=== PATIENT | female | born 1990 | race Caucasian/White ===

== ENCOUNTER 2017-10-23 21:14 | Emergency (ER) | payer OTHER, SELFPAY ==
[2017-10-23 22:13] LABS: Urine Bacteria <20 /HPF (<20); Urine Culture Reflex Order REFLEXED; Urine Mucus 1+ /HPF (NONE SEEN)
[2017-10-23 22:14] LABS: Urine Blood 2+ (NEG); Urine Glucose NEGATIVE (NEG); Urine Protein 2+ (NEG); Urine Specific Gravity 1.025 (1.005-1.030); Urine pH 6.5 (5.0-7.0)
--- NOTE | 2017-10-23 22:25 | EDPHYS ---
Physician Documentation [facility] Name: Ebony Cardoza Age: 27 yrs Sex: Female : 1990 Arrival Date: 10/23/2017 Time: 21:15 Bed 5 Private MD: ED Physician Vincent Etienne HPI: 10/23 21:48 This 27 yrs old Female presents to ER via Ambulatory with complaints of cp Urinary Retention. 21:48 The patient presents with urinary symptoms, dysuria, frequency, urgency. cp 21:48 Onset: The symptoms/episode began/occurred this morning. Associated signs and symptoms: cp Pertinent positives: dysuria, hematuria, urinary frequency, Pertinent negatives: constipation, diarrhea, fever, vaginal bleeding, vaginal discharge. Severity of symptoms: in the emergency department the symptoms are unchanged, despite home interventions. 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 - Social history:: Smoking status: Patient/guardian denies using tobacco. - Ebola Screening: : Patient denies travel to an Ebola-affected area in the 21 days before illness onset. ROS: 21:55 Constitutional: Negative for body aches, chills, fever, poor PO intake. cp 21:55 Eyes: Negative for injury, pain, redness, and discharge. cp 21:55 ENT: Negative for drainage from ear(s), ear pain, sore throat, difficulty swallowing, difficulty handling secretions. 21:55 Cardiovascular: Negative for chest pain. 21:55 Respiratory: Negative for cough, wheezing. 21:55 Abdomen/GI: Negative for abdominal pain, nausea, vomiting, and diarrhea. 21:55 Back: Negative for pain at rest, pain with movement, radiated pain. 21:55 : Positive for urinary frequency, hematuria, burning with urination. 21:55 Skin: Negative for cellulitis, rash. 21:55 All other systems are negative. Exam: 22:00 Constitutional: The patient appears in no acute distress, alert, awake, non-toxic, well cp developed, well nourished. 22:00 Head/Face: Normocephalic, atraumatic. cp 22:00 Eyes: Periorbital structures: appear normal, Conjunctiva: normal, no exudate, no injection, Sclera: no appreciated abnormality, Lids and lashes: appear normal, bilaterally. 22:00 ENT: External ear(s): are unremarkable, Nose: is normal, Mouth: is normal, Posterior pharynx: is normal, airway is patent. 22:00 Neck: ROM/movement: is normal, is supple, without pain, no range of motions limitations, no nuchal rigidity. 22:00 Chest/axilla: Inspection: normal. 22:00 Cardiovascular: Rate: tachycardic, Rhythm: regular. 22:00 Respiratory: the patient does not display signs of respiratory distress, Respirations: normal, no use of accessory muscles, no retractions, no splinting, no tachypnea. 22:00 Abdomen/GI: Inspection: abdomen appears normal, Bowel sounds: active, all quadrants, Palpation: abdomen is soft and non-tender, in all quadrants, rebound tenderness, is not appreciated, voluntary guarding, is not appreciated, involuntary guarding, is not appreciated. 22:00 Back: CVA tenderness, is absent. 22:00 Skin: cellulitis, is not appreciated, no rash present. Vital Signs: 21:30 BP 147 / 100; Pulse 101; Resp 18; Temp 98.0; Pulse Ox 96% on R/A; Weight 74.84 kg (R); aj1 Height 5 ft. 0 in. (152.40 cm); Pain 0/10; 22:24 BP 127 / 85; Pulse 86; Resp 17; Pulse Ox 100% on R/A; rv 21:30 Body Mass Index 32.22 (74.84 kg, 152.40 cm) aj1 MDM: 21:37 Patient medically screened. cp 22:00 Differential diagnosis: kidney stone, menorrhea, pelvic inflammatory disease, urinary cp tract infection, vaginosis. 22:24 Data reviewed: vital signs, nurses notes, lab test result(s), and as a result, I will cp discharge patient. 22:25 Counseling: I had a detailed discussion with the patient and/or guardian regarding: the cp historical points, exam findings, and any diagnostic results supporting the discharge/admit diagnosis, lab results, the need for outpatient follow up, a family practitioner, to return to the emergency department if symptoms worsen or persist or if there are any questions or concerns that arise at home. 10/23 21:35 Order name: Urine Microscopic Only; Complete Time: 22:24 cp 10/23 22:24 Interpretation: Within normal limits: UWBC 5-10; URBC 10-20. cp 10/23 21:51 Order name: Urine Dipstick--Ancillary (enter results); Complete Time: 22:24 eb 10/23 22:24 Interpretation: Normal except: UBLD 2+; UPROT 2+; UESTR 1+. cp 10/23 21:35 Order name: Urine Dipstick-Ancillary (obtain specimen); Complete Time: 21:48 cp 10/23 21:35 Order name: Urine Test (obtain specimen); Complete Time: 21:48 10/23 21:51 Order name: Urine --Ancillary (enter results); Complete Time: 22:24 eb 10/23 22:14 Order name: Urine Culture EDMS Administered Medications: No medications were administered Disposition: 10/24 03:44 Co-signature as Attending Physician, Vincent Etienne MD. Disposition: 10/23/17 22:25 Discharged to Home. Impression: Dysuria. - Condition is Stable. - Discharge Instructions: Dysuria. - Prescriptions for Pyridium 200 mg Oral Tablet - take 1 tablet by ORAL route every 8 hours for 2 days; 6 tablet. Macrobid 100 mg Oral Capsule - take 1 capsule by ORAL route every 12 hours for 7 days; 14 capsule. - Medication Reconciliation Form, Thank You Letter, Antibiotic Education, Prescription Opioid Use, Work release form form. - Follow up: Private Physician; When: 2 - 3 days; Reason: Recheck today's complaints. - Problem is new. - Symptoms are unchanged. Signatures: Dispatcher [facility] EDMS Mary Jo Gillette RN RN aj1 Luisito Olmstead PA PA cp Starr, Gregory, MD MD Farhan Link RN RN rv Corrections: (The following items were deleted from the chart) 10/23 22:32 22:25 10/23/2017 22:25 Discharged to Home. Impression: Dysuria. Condition is Stable. rv Forms are Medication Reconciliation Form, Thank You Letter, Antibiotic Education, Prescription Opioid Use. Follow up: Private Physician; When: 2 - 3 days; Reason: Recheck today's complaints. Problem is new. Symptoms are unchanged. cp
--- NOTE | 2017-10-23 22:25 | ER ---
Nurse's Notes [facility] Name: Ebony Cardoza Age: 27 yrs Sex: Female : 1990 Arrival Date: 10/23/2017 Time: 21:15 Bed 5 Private MD: Diagnosis: Dysuria Presentation: 10/23 21:28 Presenting complaint: Patient states: "Every time I try to go pee it hurts." Reports aj1 dysuria, urinary frequency since 11:00 this morning. Denies fever, denies N/V/D. Transition of care: patient was not received from another setting of care. Onset of symptoms was October 23, 2017 at 11:00. Risk Assessment: Do you want to hurt yourself or someone else? Patient reports no desire to harm self or others. Initial Sepsis Screen: Does the patient meet any 2 criteria? No. Patient's initial sepsis screen is negative. Does the patient have a suspected source of infection? No. Patient's initial sepsis screen is negative. Care prior to arrival: None. 21:28 Method Of Arrival: Ambulatory aj1 21:28 Acuity: TOO 4 aj1 Triage Assessment: 21:30 General: Appears in no apparent distress. comfortable, Behavior is calm, cooperative, aj1 appropriate for age. Pain: Denies pain. EENT: No signs and/or symptoms were reported regarding the EENT system. Neuro: Level of Consciousness is awake, alert, obeys commands, Oriented to person, place, time, situation, Speech is normal, Facial symmetry appears normal. Cardiovascular: Patient's skin is warm and dry. Respiratory: Airway is patent Respiratory effort is even, unlabored, Respiratory pattern is regular, symmetrical. GI: No signs and/or symptoms were reported involving the gastrointestinal system. : Reports burning with urination, urinary frequency. Derm: Skin is pink, warm \\T\\ dry. normal. Musculoskeletal: Circulation, motion, and sensation intact. 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 - Social history:: Smoking status: Patient/guardian denies using tobacco. - Ebola Screening: : Patient denies travel to an Ebola-affected area in the 21 days before illness onset. Screenin:50 Abuse screen: Denies threats or abuse. Denies injuries from another. Nutritional rv screening: No deficits noted. Tuberculosis screening: No symptoms or risk factors identified. Fall Risk None identified. Assessment: 21:48 General: Appears in no apparent distress. comfortable, Behavior is calm, cooperative. rv Pain: Complains of pain in pain on urination. Neuro: Level of Consciousness is awake, alert, obeys commands, Oriented to person, place, time, situation. Cardiovascular: Capillary refill < 3 seconds. Respiratory: Airway is patent. GI: No signs and/or symptoms were reported involving the gastrointestinal system. : No signs and/or symptoms were reported regarding the genitourinary system. EENT: No signs and/or symptoms were reported regarding the EENT system. Derm: Skin is intact. 22:25 Reassessment: Patient appears in no apparent distress at this time. Patient and/or rv family updated on plan of care and expected duration. Pain level reassessed. Patient is alert, oriented x 3, equal unlabored respirations, skin warm/dry/pink. PATIENT IS SITTING ON BED, COMFORTABLE. VITAL SIGNS ARE STABLE. Vital Signs: 21:30 BP 147 / 100; Pulse 101; Resp 18; Temp 98.0; Pulse Ox 96% on R/A; Weight 74.84 kg (R); aj1 Height 5 ft. 0 in. (152.40 cm); Pain 0/10; 22:24 BP 127 / 85; Pulse 86; Resp 17; Pulse Ox 100% on R/A; rv 21:30 Body Mass Index 32.22 (74.84 kg, 152.40 cm) aj1 ED Course: 21:15 Patient arrived in ED. ds1 21:30 Triage completed. aj1 21:33 Arm band placed on Patient placed in an exam room. aj1 21:34 Luisito Olmstead PA is PHCP. cp 21:34 Vincent Etienne MD is Attending Physician. cp 21:50 Patient has correct armband on for positive identification. Bed in low position. Call rv light in reach. Side rails up X 1. Pulse ox on. NIBP on. 22:32 No provider procedures requiring assistance completed. Patient did not have IV access rv during this emergency room visit. Administered Medications: No medications were administered Outcome: 22:25 Discharge ordered by . cp 22:32 Discharged to home ambulatory. rv 22:32 Condition: good 22:32 Discharge instructions given to patient, Instructed on discharge instructions, medication usage. 22:32 Patient left the ED. rv Addendum: 10/28/2017 08:30 Addendum: Culture Results: Positive urine culture. No further action required. Bacteria s g sensitive to prescribed antibiotic. Signatures: Mary Jo Gillette RN RN aj1 Drew Matthews RN RN sg Haritha Gordillo ds1 Luisito Olmstead PA PA cp Vicente, Ronaldo, RN RN rv
== END 2017-10-23 22:32 | disposition home or self-care (01) ==
LOC: ER 21:14
DX: R30.0 Dysuria (principal)
CPT/HCPCS: 81003; 81015; 81025; 87077; 87086; 87088; 87186; 99283

== ENCOUNTER 2018-01-14 05:06 | Emergency (ER) | payer OTHER ==
[2018-01-14] MEDS ORDERED: DIPHENHYDRAMINE 25 MG TAB/CAP ONE (05:40)
[2018-01-14] MEDS ORDERED: FAMOTIDINE 20 MG TAB ONE (05:48)
[2018-01-14] MEDS ORDERED: METHYLPREDNISOLONE 125 MG INJ ONE (05:48)
--- NOTE | 2018-01-14 05:48 | EDPHYS ---
Physician Documentation [facility] Name: Ebony Cardoza Age: 27 yrs Sex: Female : 1990 Arrival Date: 01/14/2018 Time: 05:08 Bed 17 Private MD: Graciela Hanna ED Physician Sinai Lanza HPI: 01/14 05:44 This 27 yrs old Female presents to ER via Ambulatory with complaints of Rash. ma2 05:44 The patient's rash thought to be caused by allergies. Onset: The symptoms/episode ma2 began/occurred gradually, 2 day(s) ago. Associated signs and symptoms: Pertinent positives: itching, Pertinent negatives: burning sensation, Pain swelling of tongue, vomiting. Severity of symptoms: At their worst the symptoms were moderate. The patient has experienced a previous episode. 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 - Social history:: Smoking status: Patient uses tobacco products, denies chronic smoking, but will smoke occasionally, Patient/guardian denies using alcohol, street drugs, The patient lives with family. - Ebola Screening: : No symptoms or risks identified at this time. - Family history:: not pertinent. ROS: 05:44 Constitutional: Negative for fever, chills, and weight loss, Cardiovascular: Negative ma2 for chest pain, palpitations, and edema, Abdomen/GI: Negative for abdominal pain, nausea, diarrhea, and constipation. 05:44 Skin: Positive for rash, Negative for abrasions, cellulitis, discoloration, erythema. 05:44 All other systems are negative. Exam: 05:44 Constitutional: This is a well developed, well nourished patient who is awake, alert, ma2 and in no acute distress. ENT: Nares patent. No nasal discharge, no septal abnormalities noted. Tympanic membranes are normal and external auditory canals are clear. Oropharynx with no redness, swelling, or masses, exudates, or evidence of obstruction, uvula midline. Mucous membranes moist. Chest/axilla: Normal chest wall appearance and motion. Nontender with no deformity. No lesions are appreciated. 05:44 Skin: hives on arms and chest . Vital Signs: 05:23 BP 137 / 97; Pulse 87; Resp 16; Temp 97.6; Pulse Ox 99% on R/A; Weight 76.2 kg; Height aa1 5 ft. 0 in. (152.40 cm); Pain 0/10; 05:30 BP 113 / 85; Pulse 75; Resp 17 S; Pulse Ox 98% on R/A; jd3 06:11 BP 121 / 97; Pulse 84; Resp 16 S; Pulse Ox 98% on R/A; jd3 05:23 Body Mass Index 32.81 (76.20 kg, 152.40 cm) aa1 MDM: 05:16 Patient medically screened. ma2 05:44 Differential diagnosis: varicella, allergic reaction, parasite infection, carcinoma. ma2 Data reviewed: vital signs, nurses notes. Counseling: I had a detailed discussion with the patient and/or guardian regarding: the historical points, exam findings, and any diagnostic results supporting the discharge/admit diagnosis, the presence of at least one elevated blood pressure reading (>120/80) during this emergency department visit, the need for outpatient follow up. Response to treatment: the patient's symptoms have markedly improved after treatment. Administered Medications: 05:37 Drug: Benadryl 50 mg Route: PO; jd3 06:12 Follow up: Response: No adverse reaction jd3 05:46 Drug: MethylPREDNISolone Sodium Succinate 125 mg Route: IM; Site: right gluteus; ea 06:12 Follow up: Response: No adverse reaction jd3 05:46 Drug: Pepcid 20 mg Route: PO; ea 06:12 Follow up: Response: No adverse reaction jd3 Disposition: 01/14/18 05:47 Discharged to Home. Impression: Rash and other nonspecific skin eruption. - Condition is Stable. - Discharge Instructions: Allergies, [id number]. - Prescriptions for Benadryl 25 mg Oral Capsule - take 1 capsule by ORAL route every 6 hours As needed; 30 tablet. Medrol (Tyler) 4 mg Oral Tablets, Dose Pack - take 1 tablet by ORAL route as directed - follow package instructions; 1 packet. Pepcid 20 mg Oral Tablet - take 1 tablet by ORAL route once daily for 10 days; 10 tablet. - Work release form, Medication Reconciliation Form, Thank You Letter, Antibiotic Education, Prescription Opioid Use form. - Follow up: Private Physician; When: Tomorrow; Reason: Continuance of care. - Problem is new. - Symptoms have improved. Signatures: Swati Nixon RN RN aa1 Estella Mckeon RN RN ea Álvaro Matute RN RN jd3 Sinai Lanza MD MD ma2 Corrections: (The following items were deleted from the chart) 06:13 05:47 01/14/2018 05:47 Discharged to Home. Impression: Rash and other nonspecific skin jd3 eruption. Condition is Stable. Forms are Medication Reconciliation Form, Thank You Letter, Antibiotic Education, Prescription Opioid Use. Follow up: Private Physician; When: Tomorrow; Reason: Continuance of care. Problem is new. Symptoms have improved. ma2
--- NOTE | 2018-01-14 05:48 | ER ---
Nurse's Notes [facility] Name: Ebony Cardoza Age: 27 yrs Sex: Female : 1990 Arrival Date: 01/14/2018 Time: 05:08 Bed 17 Private MD: Graciela Hanna Diagnosis: Rash and other nonspecific skin eruption Presentation: 01/14 05:16 Presenting complaint: Patient states: rash to trunk and BUE since yesterday. C/O aa1 itching. Transition of care: patient was not received from another setting of care. Onset of symptoms was January 14, 2018. Risk Assessment: Do you want to hurt yourself or someone else? Patient reports no desire to harm self or others. Initial Sepsis Screen: Does the patient meet any 2 criteria? No. Patient's initial sepsis screen is negative. Does the patient have a suspected source of infection? No. Patient's initial sepsis screen is negative. Care prior to arrival: None. 05:16 Method Of Arrival: Ambulatory aa1 05:16 Acuity: TOO 4 aa1 Triage Assessment: 05:23 General: Appears in no apparent distress. Behavior is calm, cooperative, appropriate aa1 for age. 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 - Social history:: Smoking status: Patient uses tobacco products, denies chronic smoking, but will smoke occasionally, Patient/guardian denies using alcohol, street drugs, The patient lives with family. - Ebola Screening: : No symptoms or risks identified at this time. - Family history:: not pertinent. Screenin:18 Fall Risk Ambulatory Aid- None/Bed Rest/Nurse Assist (0 pts). Gait- Normal/Bed jd3 Rest/Wheelchair (0 pts) Mental Status- Oriented to own ability (0 pts). Total Morales Fall Scale indicates No Risk (0-24 pts). 05:18 Abuse screen: Denies threats or abuse. Nutritional screening: No deficits noted. jd3 Tuberculosis screening: No symptoms or risk factors identified. Assessment: 05:16 General: Appears in no apparent distress. uncomfortable, Behavior is calm, cooperative, jd3 appropriate for age. Pain: Denies pain. Neuro: Level of Consciousness is awake, alert, obeys commands, Oriented to person, place, time, situation. Cardiovascular: Capillary refill < 3 seconds Patient's skin is warm and dry. Respiratory: Airway is patent Respiratory effort is even, unlabored, Respiratory pattern is regular, symmetrical, Breath sounds are clear bilaterally. GI: No signs and/or symptoms were reported involving the gastrointestinal system. : No signs and/or symptoms were reported regarding the genitourinary system. EENT: No signs and/or symptoms were reported regarding the EENT system. Derm: Skin is intact, Skin is dry, Skin is normal, Skin temperature is warm Rash noted that is itchy, red, on back, abdomen, right hand and left hand. Musculoskeletal: Circulation, motion, and sensation intact. Range of motion: intact in all extremities. 06:10 Reassessment: Patient appears in no apparent distress at this time. Patient and/or jd3 family updated on plan of care and expected duration. Pain level reassessed. Patient is alert, oriented x 3, equal unlabored respirations, skin warm/dry/pink. Patient states feeling better. Vital Signs: 05:23 BP 137 / 97; Pulse 87; Resp 16; Temp 97.6; Pulse Ox 99% on R/A; Weight 76.2 kg; Height aa1 5 ft. 0 in. (152.40 cm); Pain 0/10; 05:30 BP 113 / 85; Pulse 75; Resp 17 S; Pulse Ox 98% on R/A; jd3 06:11 BP 121 / 97; Pulse 84; Resp 16 S; Pulse Ox 98% on R/A; jd3 05:23 Body Mass Index 32.81 (76.20 kg, 152.40 cm) aa1 ED Course: 05:08 Patient arrived in ED. am2 05:16 Sinai Lanza MD is Attending Physician. ma2 05:16 Álvaro Matute RN is Primary Nurse. jd3 05:18 Patient has correct armband on for positive identification. Bed in low position. Call jd3 light in reach. Side rails up X 1. 05:21 Triage completed. aa1 05:23 Arm band placed on right wrist. aa1 05:53 Graciela Hanna MD is Private Physician. am2 06:10 No provider procedures requiring assistance completed. Patient did not have IV access jd3 during this emergency room visit. Administered Medications: 05:37 Drug: Benadryl 50 mg Route: PO; jd3 06:12 Follow up: Response: No adverse reaction jd3 05:46 Drug: MethylPREDNISolone Sodium Succinate 125 mg Route: IM; Site: right gluteus; ea 06:12 Follow up: Response: No adverse reaction jd3 05:46 Drug: Pepcid 20 mg Route: PO; ea 06:12 Follow up: Response: No adverse reaction jd3 Outcome: 05:47 Discharge ordered by . ma2 06:10 Discharged to home ambulatory. jd3 06:10 Condition: stable 06:10 Discharge instructions given to patient, Instructed on discharge instructions, follow up and referral plans. medication usage, Demonstrated understanding of instructions, follow-up care, medications, Prescriptions given X 3. 06:13 Patient left the ED. jd3 Signatures: Swati Nixon RN RN aaEbony Gomez amEstella Santana RN RN ea Davies, Jonathon, RN RN jSinai Allen MD MD ri2
== END 2018-01-14 06:13 | disposition home or self-care (01) ==
LOC: ER 05:06
DX: R21 Rash and other nonspecific skin eruption (principal)
CPT/HCPCS: 96372; 99283; J2930

== ENCOUNTER 2018-04-08 22:18 | Emergency (ER) | payer OTHER ==
[2018-04-08] MEDS ORDERED: FLUORESCEIN SODIUM 0.6 MG/WRAP ONE (23:11)
[2018-04-08] MEDS ORDERED: TETRACAINE HCL 0.5% 2ML OPTH ONE (23:11)
[2018-04-08] MEDS ORDERED: TETANUS & DIPHTHERIA TOX,ADULT 0.5 ML VIAL ONE (23:21)
[2018-04-08] MEDS ORDERED: TOBRAMYCIN SULF 0.3% OPTH OINT ONE (23:33)
--- NOTE | 2018-04-08 23:42 | ER ---
Nurse's Notes [facility] Name: Ebony Cardoza Age: 28 yrs Sex: Female : 1990 Arrival Date: 04/08/2018 Time: 22:19 Bed 27 Private MD: Diagnosis: Foreign body in cornea, left eye-removed;Injury of conjunctiva and corneal abrasion without foreign body, left eye Presentation: 04/08 22:25 Presenting complaint: Patient states: she was outside hanging [employer] lights and aa1 something got into her L eye. States, "It feels like something's ion there and there's a black dot on my eye." Denies visual disturbance. Transition of care: patient was not received from another setting of care. Onset of symptoms was April 08, 2018. Risk Assessment: Do you want to hurt yourself or someone else? Patient reports no desire to harm self or others. Initial Sepsis Screen: Does the patient meet any 2 criteria? No. Patient's initial sepsis screen is negative. Does the patient have a suspected source of infection? No. Patient's initial sepsis screen is negative. Care prior to arrival: None. 22:25 Method Of Arrival: Ambulatory aa1 22:25 Acuity: TOO 4 aa1 Triage Assessment: 22:27 General: Appears in no apparent distress. comfortable, Behavior is calm, cooperative, aa1 appropriate for age. 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 - Social history:: Smoking status: Patient/guardian denies using tobacco. - Ebola Screening: : No symptoms or risks identified at this time. Screenin:30 Abuse screen: Denies threats or abuse. Denies injuries from another. Nutritional rr5 screening: No deficits noted. Tuberculosis screening: No symptoms or risk factors identified. Fall Risk None identified. Assessment: 22:30 General: Appears in no apparent distress. uncomfortable, Behavior is calm, cooperative, rr5 appropriate for age. Pain: Complains of pain in left eye Pain does not radiate. Pain currently is 5 out of 10 on a pain scale. Quality of pain is described as aching, Pain began suddenly. Neuro: Level of Consciousness is awake, alert, obeys commands, Oriented to person, place, time. Cardiovascular: Capillary refill < 3 seconds Patient's skin is warm and dry. Respiratory: Airway is patent Respiratory effort is even, unlabored, Respiratory pattern is regular, symmetrical. GI: Abdomen is round. : No signs and/or symptoms were reported regarding the genitourinary system. EENT: Eyes with foreign body noted in outer aspect of conjuctiva of left eye. Derm: No signs and/or symptoms reported regarding the dermatologic system. Musculoskeletal: No signs and/or symptoms reported regarding the musculoskeletal system. Vital Signs: 22:27 BP 121 / 74; Pulse 67; Resp 16; Temp 98.1; Pulse Ox 100% on R/A; Weight 79.38 kg; aa1 Height 5 ft. 0 in. (152.40 cm); Pain 0/10; 23:40 BP 120 / 70; Pulse 65; Resp 17; Pulse Ox 100% ; rr5 22:27 Body Mass Index 34.18 (79.38 kg, 152.40 cm) aa1 ED Course: 22:19 Patient arrived in ED. ds1 22:27 Triage completed. aa1 22:27 Arm band placed on right wrist. aa1 22:44 Chelsi Grande FNP-C is [facility]. snw 22:44 Abraham Lorenzo MD is Attending Physician. snw 22:50 Patient has correct armband on for positive identification. rr5 22:50 Pulse ox on. NIBP on. rr5 22:59 Jeffrey Epps RN is Primary Nurse. rr5 23:30 Assist provider with eye exam of left eye. using fluorescein stain, Performed by Chelsi rr5 Christiane OHARA Patient tolerated well. 23:30 Patient did not have IV access during this emergency room visit. rr5 23:40 Elio Roger MD is Referral Physician. 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 Exp: rr5 05/10/2020. Lot #: [id number]. } Route: IM; Site: right deltoid; 04/09 00:05 Follow up: Response: No adverse reaction rr5 04/08 23:30 Drug: Tetracaine Drops 0.5 % 1 drops Route: Ophthalmic; Site: left eye; rr5 04/09 00:05 Follow up: Response: No adverse reaction rr5 04/08 23:40 Drug: Tobramycin Ointment (0.3 %) 1 inches Route: Ophthalmic; Site: left eye; rr5 04/09 00:04 Follow up: Response: No adverse reaction; Medication administered at discharge. rr5 04/08 23:47 CANCELLED (Other Intervention Used): ERYTHromycin Ointment 1 application Ophthalmic oncerr5 Outcome: 23:41 Discharge ordered by MD. snw 04/09 00:00 Discharged to home ambulatory, with family. rr5 Condition: stable Discharge instructions given to patient, family, Instructed on discharge instructions, follow up and referral plans. medication usage, Demonstrated understanding of instructions, follow-up care, medications, Prescriptions given X 1. 00:05 Patient left the ED. rr5 Signatures: Swati Nixon RN RN aa1 Chelsi Grande FNP-C SURVEY DATA TECHNICIAN-Haritha Haynes ds1 Jeffrey Epps RN RN rr5 Corrections: (The following items were deleted from the chart) 00:04/08 22:00 General: Appears in no apparent distress. uncomfortable, Behavior is calm, rr5 cooperative, appropriate for age, rr5 04/09 00:01 04/08 22:00 Pain: Complains of pain in left eye Pain does not radiate. Pain currently rr5 is 5 out of 10 on a pain scale. Quality of pain is described as aching, Pain began suddenly, rr5 04/09 00:01 04/08 22:00 Neuro: Level of Consciousness is awake, alert, obeys commands, Oriented to rr5 person, place, time, rr5 04/09 00:04/08 22:00 Cardiovascular: Capillary refill < 3 seconds Patient's skin is warm and rr5 dry. rr5 04/09 00:01 04/08 22:00 Respiratory: Airway is patent Respiratory effort is even, unlabored, rr5 Respiratory pattern is regular, symmetrical, rr5 04/09 00:04/08 22:00 GI: Abdomen is round rr5 rr5 04/09 00:04/08 22:00 : No signs and/or symptoms were reported regarding the genitourinary rr5 system. rr5 04/09 00:01 04/08 22:00 EENT: Eyes with foreign body noted in outer aspect of conjuctiva of left rr5 eye rr5 04/09 00:04/08 22:00 Derm: No signs and/or symptoms reported regarding the dermatologic system. rr5 rr5 04/09 00:04/08 22:00 Musculoskeletal: No signs and/or symptoms reported regarding the rr5 musculoskeletal system. rr5
--- NOTE | 2018-04-08 23:42 | EDPHYS ---
Physician Documentation [facility] Name: Ebony Cardoza Age: 28 yrs Sex: Female : 1990 Arrival Date: 04/08/2018 Time: 22:19 Bed 27 Private MD: ED Physician Abraham Lorenzo HPI: 04/09 00:05 This 28 yrs old Female presents to ER via Ambulatory with complaints of Eye snw Problem. 00:05 The patient sustained foreign body, to the left eye. Onset: The symptoms/episode snw began/occurred suddenly, today. Duration: the symptoms are continuous. Aggravated by nothing. Associated signs and symptoms: Pertinent positives: None. Severity of symptoms: At their worst the symptoms were moderate. The patient has not experienced similar symptoms in the past. 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 - Social history:: Smoking status: Patient/guardian denies using tobacco. - Ebola Screening: : No symptoms or risks identified at this time. ROS: 04/09 00:01 Constitutional: Negative for fever, chills, and weight loss, ENT: Negative for injury, snw pain, and discharge, Neck: Negative for injury, pain, and swelling, Cardiovascular: Negative for chest pain, palpitations, and edema, Respiratory: Negative for shortness of breath, cough, wheezing, and pleuritic chest pain, Abdomen/GI: Negative for abdominal pain, nausea, vomiting, diarrhea, and constipation, Back: Negative for injury and pain, : Negative for injury, bleeding, discharge, and swelling, MS/Extremity: Negative for injury and deformity, Skin: Negative for injury, rash, and discoloration, Neuro: Negative for headache, weakness, numbness, tingling, and seizure, Psych: Negative for depression, anxiety, suicide ideation, homicidal ideation, and hallucinations. Eyes: Positive for foreign body sensation, of the outer aspect of conjuctiva of left eye. Exam: 00:01 Constitutional: This is a well developed, well nourished patient who is awake, alert, snw and in no acute distress. Head/Face: Normocephalic, atraumatic. ENT: Nares patent. No nasal discharge, no septal abnormalities noted. Tympanic membranes are normal and external auditory canals are clear. Oropharynx with no redness, swelling, or masses, exudates, or evidence of obstruction, uvula midline. Mucous membranes moist. Neck: Trachea midline, no thyromegaly or masses palpated, and no cervical lymphadenopathy. Supple, full range of motion without nuchal rigidity, or vertebral point tenderness. No Meningismus. Chest/axilla: Normal chest wall appearance and motion. Nontender with no deformity. No lesions are appreciated. Cardiovascular: Regular rate and rhythm with a normal S1 and S2. No gallops, murmurs, or rubs. Normal PMI, no JVD. No pulse deficits. Respiratory: Lungs have equal breath sounds bilaterally, clear to auscultation and percussion. No rales, rhonchi or wheezes noted. No increased work of breathing, no retractions or nasal flaring. Abdomen/GI: Soft, non-tender, with normal bowel sounds. No distension or tympany. No guarding or rebound. No evidence of tenderness throughout. Back: No spinal tenderness. No costovertebral tenderness. Full range of motion. Skin: Warm, dry with normal turgor. Normal color with no rashes, no lesions, and no evidence of cellulitis. MS/ Extremity: Pulses equal, no cyanosis. Neurovascular intact. Full, normal range of motion. Neuro: Awake and alert, GCS 15, oriented to person, place, time, and situation. Cranial nerves II-XII grossly intact. Motor strength 5/5 in all extremities. Sensory grossly intact. Cerebellar exam normal. Normal gait. Psych: Awake, alert, with orientation to person, place and time. Behavior, mood, and affect are within normal limits. 00:01 Eyes: Periorbital structures: appear normal, Pupils: equal, round, and reactive to light and accomodation, Extraocular movements: no acute changes, Conjunctiva: normal, Corneas: foreign body, at 3 o'clock, black speck post touching roof, Sclera: no appreciated abnormality. Vital Signs: 04/08 22:27 BP 121 / 74; Pulse 67; Resp 16; Temp 98.1; Pulse Ox 100% on R/A; Weight 79.38 kg; aa1 Height 5 ft. 0 in. (152.40 cm); Pain 0/10; 23:40 BP 120 / 70; Pulse 65; Resp 17; Pulse Ox 100% ; rr5 22:27 Body Mass Index 34.18 (79.38 kg, 152.40 cm) aa1 Procedures: 04/09 00:06 Eye Exam: foreign body removed from 3 o'clock position at limbus edge. snw MDM: 04/08 23:06 Patient medically screened. snw 04/09 00:04 Data reviewed: vital signs, nurses notes. Data interpreted: Pulse oximetry: on room air snw is 100 %. Interpretation: normal. Counseling: I had a detailed discussion with the patient and/or guardian regarding: the historical points, exam findings, and any diagnostic results supporting the discharge/admit diagnosis, the need for outpatient follow up, to return to the emergency department if symptoms worsen or persist or if there are any questions or concerns that arise at home. Response to treatment: the patient's condition has returned to base line. Special discussion: Based on the history and exam findings, there is no indication for further emergent testing or inpatient evaluation. I discussed with the patient/guardian the need to see the opthamologist for further evaluation of the symptoms. 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 Exp: rr5 05/10/2020. Lot #: [id number]. } Route: IM; Site: right deltoid; 04/09 00:05 Follow up: Response: No adverse reaction rr5 04/08 23:30 Drug: Tetracaine Drops 0.5 % 1 drops Route: Ophthalmic; Site: left eye; rr5 04/09 00:05 Follow up: Response: No adverse reaction rr5 04/08 23:40 Drug: Tobramycin Ointment (0.3 %) 1 inches Route: Ophthalmic; Site: left eye; rr5 04/09 00:04 Follow up: Response: No adverse reaction; Medication administered at discharge. rr5 04/08 23:47 CANCELLED (Other Intervention Used): ERYTHromycin Ointment 1 application Ophthalmic oncerr5 Disposition: 04/09 01:07 Co-signature as Attending Physician, Abraham Lorenzo MD. rn Disposition: 04/08/18 23:41 Discharged to Home. Impression: Foreign body in cornea, left eye - removed, Injury of conjunctiva and corneal abrasion without foreign body, left eye. - Condition is Stable. - Discharge Instructions: Corneal Abrasion, Eye Foreign Body, [id number]. - Work release form, Family Work Release, Medication Reconciliation Form, Thank You Letter, Antibiotic Education, Prescription Opioid Use form. - Follow up: Elio Roger MD; When: 1 - 2 days; Reason: Recheck today's complaints, Continuance of care. Follow up: Emergency Department; When: As needed; Reason: Worsening of condition. Signatures: Swati Nixon RN RN aa1 Chelsi Grande, MOLDING MANAGER-C MOLDING MANAGER-Csnw Abraham Lorenzo MD MD rn Roque, Raymond, RN RN rr5 Corrections: (The following items were deleted from the chart) 04/08 23:47 22:44 ERYTHromycin Ointment 1 application Ophthalmic once ordered. snw rr5 04/09 00:05 04/08 23:41 04/08/2018 23:41 Discharged to Home. Impression: Foreign body in cornea, rr5 left eye - removed; Injury of conjunctiva and corneal abrasion without foreign body, left eye. Condition is Stable. Forms are Medication Reconciliation Form, Thank You Letter, Antibiotic Education, Prescription Opioid Use. Follow up: Elio Roger; When: 1 - 2 days; Reason: Recheck today's complaints, Continuance of care. Follow up: Emergency Department; When: As needed; Reason: Worsening of condition. snw
== END 2018-04-09 00:05 | disposition home or self-care (01) ==
LOC: ER 22:18
PROC: 08CTXZZ Extirpation of Matter from Left Conjunctiva, External Approach (ICD-10-PCS; principal; 2018-04-09)
DX: T15.02XA Foreign body in cornea, left eye, initial encounter (principal); S05.02XA Injury of conjunctiva and corneal abrasion without foreign body, left eye, initial encounter; Z23 Encounter for immunization
CPT/HCPCS: 90714; 99284

== ENCOUNTER 2018-05-30 18:49 | Emergency (ER) | payer BC, OTHER ==
[2018-05-30 20:48] LABS: Urine Blood NEGATIVE (NEG); Urine Glucose NEGATIVE (NEG); Urine Protein NEGATIVE (NEG); Urine Specific Gravity 1.025 (1.005-1.030); Urine pH 5.5 (5.0-7.0)
[2018-05-30] MEDS ORDERED: ONDANSETRON 4 MG/2 ML VIAL ONE (21:41)
[2018-05-30] MEDS ORDERED: FAMOTIDINE 20 MG/2 ML VIAL IV ONE (21:41)
[2018-05-30 22:31] LABS: Absolute Lymphocytes (CBC) 3.6 K/uL (0.7-4.9); Absolute Monocytes 0.9 K/uL (0.1-1.3); Absolute Neutrophil 6.1 K/uL (1.8-8.0); Basophils % 0.4 % (0-1.3); Eosinophils % 1.7 % (0-4.4); Hematocrit 43.4 % (36.0-45.0); Lymphocytes % 33.6 % (15.3-44.8); RBC Red Blood Cell Count 5.08 M/uL (3.86-4.86)
[2018-05-30 22:33] LABS: Urine Bacteria 20-50 /HPF (<20); Urine RBC <5 /HPF (NONE SEEN)
[2018-05-30 22:34] LABS: Urine Culture Reflex Order REFLEXED; Urine Trichomonas PRESENT (NONE SEEN)
[2018-05-30 22:52] LABS: ALT/SGPT 21 U/L (12-78); AST/SGOT 33 U/L (15-37); Albumin 3.9 g/dL (3.4-5.0); Alkaline Phosphatase 134 U/L (45-117); BUN Blood Urea Nitrogen 14 mg/dL (7-18); Bicarbonate 27 mmol/L (21-32); Bilirubin Direct < 0.1 mg/dL (0-0.2); Bilirubin Total 0.5 mg/dL (0.2-1.0); Glucose Level 81 mg/dL (74-106); Lipase 77 U/L (73-393); Potassium 4.6 mmol/L (3.5-5.1); Protein, Total 7.7 g/dL (6.4-8.2); Sodium Level 140 mmol/L (136-145)
[2018-05-30] MEDS ORDERED: CEFTRIAXONE 1000 MG/VIAL ONE (23:42)
[2018-05-30] MEDS ORDERED: NA CHLORIDE 0.9% 100 ML IV ONE (23:43)
--- NOTE | 2018-05-31 00:34 | ER ---
Nurse's Notes [facility] Name: Ebony Cardoza Age: 28 yrs Sex: Female : 1990 Arrival Date: 05/30/2018 Time: 18:53 Bed 6 Private MD: None, None Diagnosis: Abdominal pain;Acute UTI;Trichomonas vaginalis Presentation: 05/30 18:53 Presenting complaint: Patient states: left sided abd pain, nausea, "acid reflux" sv started yesterday. Transition of care: patient was not received from another setting of care. Onset of symptoms was May 29, 2018. Care prior to arrival: None. 18:53 Method Of Arrival: Ambulatory sv 18:53 Acuity: TOO 3 sv 22:24 Risk Assessment: Do you want to hurt yourself or someone else? Patient reports no lp1 desire to harm self or others. Initial Sepsis Screen: Does the patient meet any 2 criteria? No. Patient's initial sepsis screen is negative. Does the patient have a suspected source of infection? No. Patient's initial sepsis screen is negative. Triage Assessment: 18:57 General: Appears in no apparent distress. uncomfortable, Behavior is calm, cooperative, sv appropriate for age. Pain: Complains of pain in anterior aspect of left lateral abdomen, left upper quadrant and left lower quadrant Pain currently is 6 out of 10 on a pain scale. Neuro: Level of Consciousness is awake, alert, obeys commands, Oriented to person, place, time, situation, Gait is steady. Respiratory: Respiratory effort is even, unlabored, Respiratory pattern is regular, symmetrical. GI: Reports nausea. Historical: - Allergies: 18:55 No Known Allergies; sv - PMHx: 18:55 None; sv - PSHx: 18:55 ; sv - Immunization history:: Adult Immunizations unknown. - Social history:: Smoking status: unknown. - Ebola Screening: : No symptoms or risks identified at this time. - Family history:: not pertinent. - Hospitalizations: : No recent hospitalization is reported. Screenin:31 Abuse screen: Denies threats or abuse. Denies injuries from another. Nutritional ak1 screening: No deficits noted. Tuberculosis screening: No symptoms or risk factors identified. Fall Risk None identified. Assessment: 20:31 General: Appears in no apparent distress. Behavior is calm, cooperative. Pain: ak1 Complains of pain in abdomen, epigastric. Neuro: No deficits noted. Cardiovascular: No deficits noted. Respiratory: No deficits noted. GI: Abdomen is round non-distended, Bowel sounds present X 4 quads. Abd is soft and non tender X 4 quads. Reports abd burning and epigastric area burning after eating. : No signs and/or symptoms were reported regarding the genitourinary system. EENT: No signs and/or symptoms were reported regarding the EENT system. Derm: No signs and/or symptoms reported regarding the dermatologic system. Musculoskeletal: No signs and/or symptoms reported regarding the musculoskeletal system. 22:15 Reassessment: Patient appears in no apparent distress at this time. Patient is alert, lp1 oriented x 3, equal unlabored respirations, skin warm/dry/pink. Aware of waiting for ultrasound results. 23:30 Reassessment: Patient appears in no apparent distress at this time. No changes from lp1 previously documented assessment. Patient and/or family updated on plan of care and expected duration. Pain level reassessed. 05/31 00:30 Reassessment: Patient and/or family updated on plan of care and expected duration. Pain lp1 level reassessed. Patient is alert, oriented x 3, equal unlabored respirations, skin warm/dry/pink. Patient aware of waiting for CT results. Vital Signs: 05/30 18:55 BP 123 / 76; Pulse 89; Resp 20; Temp 98.2; Pulse Ox 99% ; Weight 74.84 kg; Height 5 ft. sv 0 in. (152.40 cm); Pain 6/10; 20:31 BP 134 / 77; Pulse 79; Resp 16; Temp 98.2; Pulse Ox 100% on R/A; ak1 22:27 BP 111 / 62; Pulse 71; Resp 16; Pulse Ox 100% on R/A; lp1 23:00 BP 108 / 68; Pulse 65; Resp 16; Pulse Ox 99% on R/A; lp1 05/31 00:30 BP 112 / 69; Pulse 70; Resp 16; Pulse Ox 99% on R/A; lp1 05/30 18:55 Body Mass Index 32.22 (74.84 kg, 152.40 cm) sv ED Course: 05/30 18:53 Patient arrived in ED. sb2 18:53 None, None is Private Physician. sb2 18:55 Triage completed. sv 18:57 Arm band placed on. sv 20:26 Ebony Hurt RN is Primary Nurse. aj 20:31 Patient has correct armband on for positive identification. Bed in low position. Call ak1 light in reach. Side rails up X 1. Pulse ox on. NIBP on. 20:31 Urine collected: clean catch specimen. ak1 20:52 Beny Camarillo MD is Attending Physician. wa 21:41 US Abdomen Limited In Process Unspecified. EDMS 22:00 Report received from Ebony Hurt RN. lp1 22:11 Missed attempt(s): 20 gauge Bleeding controlled, band aid applied, catheter tip intact. oe 22:15 Missed attempt(s): 22 gauge in left forearm. Inserted saline lock: 22 gauge in left lp1 hand, using aseptic technique. Blood collected. 22:24 Radiology exam delayed due to lab results not completed at this time. (BUN/Creatinine). vm2 22:36 Radiology exam delayed due to lab results not completed at this time. (BUN/Creatinine). vm2 22:43 Inserted saline lock: 22 gauge in left antecubital area, using aseptic technique. ak1 ,using aseptic technique. placed for CT with contrast. 23:[address] lp1 23:[address] via wheelchair. kw1 02 00:09 CT completed. Patient tolerated procedure well. Patient moved back from CT. kw1 00:20 CT Abd/Pelvis - W/Contrast In Process Unspecified. EDMS 00:32 Beny Fenton MD is Referral Physician. wa 00:53 No provider procedures requiring assistance completed. lp1 01:00 IV discontinued, intact, bleeding controlled, No redness/swelling at site. ak1 Administered Medications: 05/30 22:23 Drug: Pepcid 20 mg Route: IVP; Site: left hand; lp1 23:00 Follow up: Response: No adverse reaction lp1 22:23 Drug: Zofran 4 mg Route: IVP; Site: left hand; lp1 23:00 Follow up: Response: No adverse reaction lp1 05/31 00:25 Drug: Rocephin - (cefTRIAXone) 2 grams Route: IVPB; Infused Over: 30 mins; Site: left lp1 hand; 01:00 Follow up: IV Status: Completed infusion; IV Intake: 100ml lp1 Intake: 01:00 IV: 100ml; Total: 100ml. lp1 Outcome: 00:33 Discharge ordered by . lamin 01:07 Discharged to home ambulatory, with significant other. lp1 01:07 Condition: stable 01:07 Discharge instructions given to patient, Instructed on discharge instructions, follow up and referral plans. medication usage, Demonstrated understanding of instructions, follow-up care, medications, Prescriptions given X 4. 01:08 Patient left the ED. lp1 Signatures: Dispatcher [employer] EDMS Shari Akers RN Ebony Hernandez RN Nicolette Valdez RN RN lp1 Vi Sawyer RN RN Ever Falcon [place] 2 Beny Camarillo MD MD wa Wilhelm, Kimberly kw1 Alea Hernandez sb2 Corrections: (The following items were deleted from the chart) 05/30 18:58 18:55 Pulse 89bpm; Resp 20bpm; Pulse Ox 99%; Temp 98.2F; 74.84 kg; Height 5 ft. 0 in.; sv BMI: 32.2; Pain 6/10; sv
--- NOTE | 2018-05-31 00:34 | EDPHYS ---
Physician Documentation [facility] Name: Ebony Cardoza Age: 28 yrs Sex: Female : 1990 Arrival Date: 05/30/2018 Time: 18:53 Bed 6 Private MD: None, None ED Physician Beny Camarillo HPI: 05/30 22:25 This 28 yrs old Female presents to ER via Ambulatory with complaints of wa Abdominal Pain. 22:25 The patient presents with abdominal pain in the epigastric area. Onset: The wa symptoms/episode began/occurred 4 week(s) ago. The symptoms do not radiate. Associated signs and symptoms: Pertinent negatives: nausea and vomiting, chest pain, constipation, diarrhea, dysuria, fever, hematuria, nausea, vomiting. The symptoms are described as achy. Modifying factors: The symptoms are alleviated by nothing, the symptoms are aggravated by food. Severity of pain: At its worst the pain was moderate in the emergency department the pain has improved markedly. The patient has experienced similar episodes in the past, multiple times, states advised to see a GI but didn't have the $200 co-pay. The patient has not recently seen a physician. denies back pain, shoulder pain or yellowing of the eyes and skin. Historical: - Allergies: 18:55 No Known Allergies; sv - PMHx: 18:55 None; sv - PSHx: 18:55 ; sv - Immunization history:: Adult Immunizations unknown. - Social history:: Smoking status: unknown. - Ebola Screening: : No symptoms or risks identified at this time. - Family history:: not pertinent. - Hospitalizations: : No recent hospitalization is reported. ROS: 22:27 Constitutional: Negative for fever, chills, and weight loss, Eyes: Negative for injury, wa pain, redness, and discharge, ENT: Negative for injury, pain, and discharge, Neck: Negative for injury, pain, and swelling, Cardiovascular: Negative for chest pain, palpitations, and edema, Respiratory: Negative for shortness of breath, cough, wheezing, and pleuritic chest pain, Back: Negative for injury and pain, : Negative for injury, bleeding, discharge, and swelling, MS/Extremity: Negative for injury and deformity, Skin: Negative for injury, rash, and discoloration, Neuro: Negative for headache, weakness, numbness, tingling, and seizure, Psych: Negative for depression, anxiety, suicide ideation, homicidal ideation, and hallucinations. 22:27 Abdomen/GI: Positive for abdominal pain, Negative for nausea, vomiting, and diarrhea. 22:27 All other systems are negative. Exam: 22:27 Constitutional: This is a well developed, well nourished patient who is awake, alert, wa and in no acute distress. Head/Face: Normocephalic, atraumatic. Eyes: Pupils equal round and reactive to light, extra-ocular motions intact. Lids and lashes normal. Conjunctiva and sclera are non-icteric and not injected. Cornea within normal limits. Periorbital areas with no swelling, redness, or edema. ENT: Nares patent. No nasal discharge, no septal abnormalities noted. Tympanic membranes are normal and external auditory canals are clear. Oropharynx with no redness, swelling, or masses, exudates, or evidence of obstruction, uvula midline. Mucous membranes moist. Neck: Trachea midline, no thyromegaly or masses palpated, and no cervical lymphadenopathy. Supple, full range of motion without nuchal rigidity, or vertebral point tenderness. No Meningismus. Chest/axilla: Normal chest wall appearance and motion. Nontender with no deformity. No lesions are appreciated. Cardiovascular: Regular rate and rhythm with a normal S1 and S2. No gallops, murmurs, or rubs. Normal PMI, no JVD. No pulse deficits. Respiratory: Lungs have equal breath sounds bilaterally, clear to auscultation and percussion. No rales, rhonchi or wheezes noted. No increased work of breathing, no retractions or nasal flaring. Back: No spinal tenderness. No costovertebral tenderness. Full range of motion. Skin: Warm, dry with normal turgor. Normal color with no rashes, no lesions, and no evidence of cellulitis. MS/ Extremity: Pulses equal, no cyanosis. Neurovascular intact. Full, normal range of motion. Neuro: Awake and alert, GCS 15, oriented to person, place, time, and situation. Cranial nerves II-XII grossly intact. Motor strength 5/5 in all extremities. Sensory grossly intact. Cerebellar exam normal. Normal gait. Psych: Awake, alert, with orientation to person, place and time. Behavior, mood, and affect are within normal limits. 22:27 Abdomen/GI: Inspection: abdomen appears normal, Bowel sounds: normal, Palpation: soft, in all quadrants, mild abdominal tenderness, in the epigastric area. Vital Signs: 18:55 BP 123 / 76; Pulse 89; Resp 20; Temp 98.2; Pulse Ox 99% ; Weight 74.84 kg; Height 5 ft. sv 0 in. (152.40 cm); Pain 6/10; 20:31 BP 134 / 77; Pulse 79; Resp 16; Temp 98.2; Pulse Ox 100% on R/A; ak1 22:27 BP 111 / 62; Pulse 71; Resp 16; Pulse Ox 100% on R/A; lp1 23:00 BP 108 / 68; Pulse 65; Resp 16; Pulse Ox 99% on R/A; lp1 05/31 00:30 BP 112 / 69; Pulse 70; Resp 16; Pulse Ox 99% on R/A; lp1 05/30 18:55 Body Mass Index 32.22 (74.84 kg, 152.40 cm) sv MDM: 05/30 20:52 Patient medically screened. oh 22:28 Differential diagnosis: dyspepsia. gastritis (H.pylori?) R/O gallbladder dz. consider oh pancreatitis. 23:22 Test interpretation: by ED physician or midlevel provider: UA noted for pyuria and wa trichomonas. 3+ LE. Chemistry noted for isolated alk phos elevation. RUQ US: no gallstones. . ED course: rocephin IV given. Will need scripted for flagyl for trichomonas. 05/31 00:31 Data reviewed: vital signs, nurses notes. Test interpretation: by ED physician or oh midlevel provider: CT abd/pelvis: no acute process. RUQ US: no gallstones. Response to treatment: the patient's symptoms have markedly improved after treatment. 05/30 20:42 Order name: Urine Dipstick--Ancillary (enter results) [facility] 05/30 20:42 Order name: Urine --Ancillary (enter results) [facility] 05/30 21:23 Order name: Basic Metabolic Panel; Complete Time: 23:18 oh 05/30 21:23 Order name: CBC with Diff; Complete Time: 23:18 oh 05/30 21:23 Order name: Hepatic Function; Complete Time: 23:18 oh 05/30 21:23 Order name: Lipase; Complete Time: 23:19 oh 05/30 21:23 Order name: IV Saline Lock; Complete Time: 22:24 oh 05/30 21:23 Order name: Urine Microscopic Only; Complete Time: 23:18 oh 05/30 21:24 Order name: US Abdomen Limited oh 05/30 21:44 Order name: CT Abd/Pelvis - W/Contrast oh 05/30 22:36 Order name: Urine Culture [facility] 05/30 21:23 Order name: Labs collected and sent; Complete Time: 22:24 oh Administered Medications: 05/30 22:23 Drug: Pepcid 20 mg Route: IVP; Site: left hand; lp1 23:00 Follow up: Response: No adverse reaction [facility] 22:23 Drug: Zofran 4 mg Route: IVP; Site: left hand; lp1 23:00 Follow up: Response: No adverse reaction [facility] 05/31 00:25 Drug: Rocephin - (cefTRIAXone) 2 grams Route: IVPB; Infused Over: 30 mins; Site: left lp1 hand; 01:00 Follow up: IV Status: Completed infusion; IV Intake: 100ml [facility] Disposition: 05/31/18 00:33 Discharged to Home. Impression: Abdominal pain, Acute UTI, Trichomonas vaginalis. - Condition is Stable. - Discharge Instructions: Trichomoniasis, Urinary Tract Infection, Adult, [id number], Abdominal Pain, Adult, [id number]. - Prescriptions for Keflex 500 mg Oral Capsule - take 1 capsule by ORAL route every 8 hours for 5 days; 15 capsule. Flagyl 500 mg Oral Tablet - take 1 tablet by ORAL route every 8 hours for 7 days; 21 tablet. Zofran 4 mg Oral Tablet - take 1 tablet by ORAL route every 12 hours As needed; 20 tablet. Prevacid 30 mg Oral Capsule - take 1 capsule by ORAL route once daily; 20 capsule. - Work release form, Medication Reconciliation Form, Thank You Letter, Antibiotic Education, Prescription Opioid Use form. - Follow up: Beny Fenton MD; When: 2 - 3 days; Reason: Recheck today's complaints. - Problem is new. - Symptoms have improved. - Notes: follow up with the gastro doctor for further evaluation of your abdominal pain. take medication as prescribed. Signatures: Dispatcher [employer] Shari Haile RN RN sv Nicolette Joshi, RN RN lp1 Vi Sawyer, RN RN ak1 Beny Camarillo MD MD wa Corrections: (The following items were deleted from the chart) 01:08 00:33 05/31/2018 00:33 Discharged to Home. Impression: Abdominal pain; Acute UTI; lp1 Trichomonas vaginalis. Condition is Stable. Forms are Medication Reconciliation Form, Thank You Letter, Antibiotic Education, Prescription Opioid Use. Follow up: Beny Fenton; When: 2 - 3 days; Reason: Recheck today's complaints. Problem is new. Symptoms have improved. lamin
--- NOTE | 2018-05-31 09:03 | RAD REPORT ---
EXAM DESCRIPTION: US - Abdomen Exam Limited - 05/30/2018 9:54 pm CLINICAL HISTORY: Abdominal pain. COMPARISON: None. FINDINGS: The gallbladder wall is not thickened. A gallstone is not seen. The biliary tree is normal caliber. IMPRESSION: Unremarkable gallbladder ultrasound.
--- NOTE | 2018-06-02 19:57 | RAD REPORT ---
EXAM DESCRIPTION: CT - Abdomen Pelvis W Contrast - 05/31/2018 3:23 am CLINICAL HISTORY: The patient is 28 years old and is Female; ABD PAIN. TECHNIQUE: Axial computed tomography images of the abdomen and pelvis with intravenous contrast. Sag ittal and coronal reformatted images were created and reviewed. This CT exam was performed using one or more of the following dose reduction techniques: Automated exposure control, adjustment of the mA and/or kV according to patient size, and/or use of iterative reconstruction technique. COMPARISON: None. FINDINGS: LUNG BASES: Unremarkable. No mass. No consolidation. ABDOMEN: LIVER: Unremarkable. No mass. GALLBLADDER AND BILE DUCTS: Unremarkable. No calcified stones. No ductal dilation. PANCREAS: Unremarkable. No mass. No ductal dilation SPLEEN: Punctate calcification in the spleen and irregular contour, likely scarring. ADRENALS: Unremarkable. No mass. KIDNEYS AND URETERS: Unremarkable. No solid mass. No hydronephrosis. STOMACH AND BOWEL: Unremarkable. No obstruction. No mucosal thickening. PELVIS: APPENDIX: The appendix is seen and within normal limits. BLADDER: Unremarkable. No demetri. REPRODUCTIVE: Incompletely characterized physiologic changes with heterogenous enlargement of the krysten suyapa, a small amount of endometrial fluid, as well as right adnexal rim-enhancing cyst measuring up to 2.1 cm, likely corpus luteal cyst. ABDOMEN and PELVIS: INTRAPERITONEAL SPACE: Small amount of free pelvic fluid also present. No free air. BONE/JOINTS: No acute fracture. No dislocation. SOFT TISSUES: Unremarkable. VASCULATURE: Unremarkable. No abdominal aortic aneurysm. LYMPH NODES: No enlarged lymph nodes. IMPRESSION: 1. No acute abdominal or pelvic abnormality. 2. Incompletely characterized physiologic changes with herterogenous enlargement of the uterus, small amount of endometrial fluid, as well as right adnexal rim-enhancing cyst measuring up to 2.1 cm, lik david corpus luteal cyst. No follow-up imaging is recommended. Reference: US recommendations based on radiology 2010 Dec;256(3):943-54;CT/MR recommendations based o n J Am Shekhar Radiol 2013;10:675-681 Electronically signed by: Pancho Irwin DO 05/31/2018 12:17 AM CONSUMER MARKETING SPECIALIST Due to temporary technical issues with the PACS/Fluency reporting system, reports are being signed by the in house radiologist as a courtesy to ensure prompt reporting. The interpreting radiologist is f ully responsible for the content of the report.
== END 2018-05-31 01:08 | disposition home or self-care (01) ==
LOC: ER 18:49
DX: N39.0 Urinary tract infection, site not specified (principal); A59.01 Trichomonal vulvovaginitis
CPT/HCPCS: 36415; 74177; 76705; 80048; 80076; 81003; 81015; 81025; 83690; 85025; 87086; 87088; 96365; 96375; 99284; J2405; Q9967

== ENCOUNTER 2018-07-07 20:19 | Emergency (ER) | payer BC ==
[2018-07-07 21:10] LABS: Urine Blood 2+ (NEG); Urine Glucose NEGATIVE (NEG); Urine Protein 1+ (NEG); Urine Specific Gravity 1.015 (1.005-1.030); Urine pH 5.5 (5.0-7.0)
[2018-07-07 21:38] LABS: Urine Bacteria <20 /HPF (<20); Urine Culture Reflex Order NOT NEEDED; Urine RBC 20-50 /HPF (NONE SEEN)
[2018-07-07 21:39] LABS: Urine Trichomonas PRESENT (NONE SEEN)
--- NOTE | 2018-07-07 22:10 | ER ---
Nurse's Notes [facility] Name: Ebony Cardoza Age: 28 yrs Sex: Female : 1990 Arrival Date: 07/07/2018 Time: 20:27 Bed 25 Private MD: Diagnosis: Dysuria;Trichomoniasis, unspecified Presentation: 07/07 20:27 Presenting complaint: Patient states: burning with urination, decreased urine output, ak1 increased frequency, lower abd cramps with urination since yesterday. Transition of care: patient was not received from another setting of care. Onset of symptoms was July 06, 2018. Risk Assessment: Do you want to hurt yourself or someone else? Patient reports no desire to harm self or others. Initial Sepsis Screen: Does the patient meet any 2 criteria? No. Patient's initial sepsis screen is negative. Does the patient have a suspected source of infection? No. Patient's initial sepsis screen is negative. Care prior to arrival: None. 20:27 Method Of Arrival: Ambulatory ak1 20:27 Acuity: TOO 3 ak1 Triage Assessment: 20:28 General: Appears uncomfortable, Behavior is calm, cooperative. Pain: Complains of pain ak1 in pelvis. EENT: No signs and/or symptoms were reported regarding the EENT system. Neuro: No deficits noted. Cardiovascular: No deficits noted. Respiratory: No deficits noted. GI: Reports lower abdominal pain, cramping. : Reports burning with urination, cramping, lower abd since yesterday urgency, urinary frequency. Derm: No signs and/or symptoms reported regarding the dermatologic system. Musculoskeletal: No signs and/or symptoms reported regarding the musculoskeletal system. 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 - Social history:: Smoking status: Patient/guardian denies using tobacco. - Ebola Screening: : No symptoms or risks identified at this time. Screenin:30 Abuse screen: Denies threats or abuse. Denies injuries from another. Nutritional ak1 screening: No deficits noted. Tuberculosis screening: No symptoms or risk factors identified. Fall Risk None identified. Assessment: 21:44 General: Appears in no apparent distress. comfortable, Behavior is calm, cooperative. rv Pain: Complains of pain in pelvis Aggravated by urination. Neuro: Level of Consciousness is awake, alert, obeys commands, Oriented to person, place, time, situation. Cardiovascular: Capillary refill < 3 seconds. Respiratory: Airway is patent. GI: No signs and/or symptoms were reported involving the gastrointestinal system. : Reports burning with urination, urinary frequency. EENT: No signs and/or symptoms were reported regarding the EENT system. Derm: Skin is intact. Musculoskeletal: No signs and/or symptoms reported regarding the musculoskeletal system. Vital Signs: 20:28 BP 116 / 93; Pulse 98; Resp 18; Temp 98.1; Pulse Ox 100% on R/A; Weight 75.75 kg (R); ak1 Height 5 ft. 0 in. (152.40 cm) (R); Pain 6/10; 20:28 Body Mass Index 32.61 (75.75 kg, 152.40 cm) ak1 ED Course: 20:27 Patient arrived in ED. ak1 20:28 Triage completed. ak1 20:28 Arm band placed on Patient placed in waiting room, Patient notified of wait time. ak1 20:30 Patient has correct armband on for positive identification. ak1 21:04 Luisito Olmstead PA is PHCP. cp 21:04 Vincent Etienne MD is Attending Physician. cp 22:23 No provider procedures requiring assistance completed. Patient did not have IV access rv during this emergency room visit. Administered Medications: 22:22 Drug: Zithromax 1 grams Route: PO; rv 22:23 Follow up: Response: Medication administered at discharge. rv 22:22 Drug: metroNIDAZOLE 1 grams Route: PO; rv 22:23 Follow up: Response: Medication administered at discharge. rv 22:22 Drug: Rocephin (cefTRIAXone) 250 mg Route: IM; Site: left deltoid; rv 22:23 Follow up: Response: Medication administered at discharge. rv Outcome: 22:10 Discharge ordered by . cp 22:23 Discharged to home ambulatory. rv 22:23 Condition: good 22:23 Discharge instructions given to patient, Instructed on discharge instructions, follow up and referral plans. medication usage, Demonstrated understanding of instructions, follow-up care, medications, Prescriptions given X 2. 22:29 Patient left the ED. ca1 Addendum: 07/10/2018 15:44 Addendum: Culture Results: Positive urine culture. No further action required. Other: s s sensitive to prescribed antibiotics. OK per RADHA Acosta. Signatures: Lupe Vincent RN RN ss Vi Sawyer RN RN ak1 Luisito Olmstead PA PA cp Vicente, Ronaldo, RN RN Cindi Tompkins RN RN ca1 Corrections: (The following items were deleted from the chart) 07/07 20:46 20:27 Acuity: TOO 4 ak1 ak1 07/10 15:45 15:44 Addendum: Culture Results: Positive urine culture. No further action required. ss Other: Ok per RADHA Acosta. ss
--- NOTE | 2018-07-07 22:10 | EDPHYS ---
Physician Documentation [facility] Name: Ebony Cardoza Age: 28 yrs Sex: Female : 1990 Arrival Date: 07/07/2018 Time: 20:27 Bed 25 Private MD: ED Physician Vincent Etienne HPI: 07/07 20:55 This 28 yrs old Female presents to ER via Ambulatory with complaints of Pain cp With Urination. 20:55 The patient presents with urinary symptoms, dysuria, frequency, urgency. Onset: The cp symptoms/episode began/occurred yesterday. 20:55 Associated signs and symptoms: Pertinent positives: dysuria, urinary frequency, cp Pertinent negatives: constipation, diarrhea, fever, hematuria, vaginal bleeding, vaginal discharge. Severity of symptoms: in the emergency department the symptoms are unchanged, despite home interventions. 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 - Social history:: Smoking status: Patient/guardian denies using tobacco. - Ebola Screening: : No symptoms or risks identified at this time. ROS: 21:00 Constitutional: Negative for body aches, chills, fever, poor PO intake. cp 21:00 Eyes: Negative for injury, pain, redness, and discharge. cp 21:00 ENT: Negative for drainage from ear(s), ear pain, sore throat, difficulty swallowing, difficulty handling secretions. 21:00 Cardiovascular: Negative for chest pain. 21:00 Respiratory: Negative for cough, shortness of breath, wheezing. 21:00 Abdomen/GI: Positive for abdominal pain, of the suprapubic area, Negative for vomiting, diarrhea, constipation, black/tarry stool, rectal bleeding. 21:00 Back: Positive for pain at rest, of the low back area. 21:00 : Positive for urinary frequency, burning with urination, Negative for hematuria, vaginal bleeding, vaginal discharge. 21:00 Skin: Negative for cellulitis, rash. 21:00 Neuro: Negative for altered mental status, headache, weakness. 21:00 All other systems are negative. Exam: 21:10 Constitutional: The patient appears in no acute distress, alert, awake, comfortable, cp non-toxic, well developed, well nourished. 21:10 Head/Face: Normocephalic, atraumatic. cp 21:10 Eyes: Periorbital structures: appear normal, Conjunctiva: normal, no exudate, no injection, Sclera: no appreciated abnormality, Lids and lashes: appear normal, bilaterally. 21:10 ENT: External ear(s): are unremarkable, Nose: is normal, Mouth: Lips: moist, Oral mucosa: pink and intact, moist, Posterior pharynx: is normal, airway is patent, no erythema, no exudate. 21:10 Chest/axilla: Inspection: normal. 21:10 Cardiovascular: Rate: normal, Rhythm: regular. 21:10 Respiratory: the patient does not display signs of respiratory distress, Respirations: normal, no use of accessory muscles, no retractions, no splinting, no tachypnea. 21:10 Abdomen/GI: Inspection: abdomen appears normal, Bowel sounds: active, all quadrants, Palpation: abdomen is soft and non-tender, in all quadrants, rebound tenderness, is not appreciated. 21:10 Back: pain, that is very mild, of the low back area, ROM is normal. Vital Signs: 20:28 BP 116 / 93; Pulse 98; Resp 18; Temp 98.1; Pulse Ox 100% on R/A; Weight 75.75 kg (R); ak1 Height 5 ft. 0 in. (152.40 cm) (R); Pain 6/10; 20:28 Body Mass Index 32.61 (75.75 kg, 152.40 cm) ak1 MDM: 21:00 Differential diagnosis: cervicitis, pelvic inflammatory disease, urinary tract cp infection, vaginosis, STD. 21:04 Patient medically screened. cp 22:05 Data reviewed: vital signs, nurses notes, lab test result(s), and as a result, I will cp discharge patient. 22:05 Counseling: I had a detailed discussion with the patient and/or guardian regarding: the cp historical points, exam findings, and any diagnostic results supporting the discharge/admit diagnosis, lab results, the need for outpatient follow up, a family practitioner, to return to the emergency department if symptoms worsen or persist or if there are any questions or concerns that arise at home. ED course: VSS. Discussed urine results that were positive for trichomonas. Will treat for GC/chlamydia also and discharge to home for continued monitoring. Patient instructed that sexual partner needs treatment or reinfection can occur. 07/07 20:48 Order name: Urine Dipstick--Ancillary (enter results) [facility] 07/07 20:48 Order name: Urine --Ancillary (enter results) [facility] 07/07 20:48 Order name: Urine Microscopic Only; Complete Time: 21:52 [facility] 07/07 21:52 Interpretation: Normal except: UWBC 20-50; URBC 20-50; SQEPI 10-20; TRICH PRESENT. 07/07 20:48 Order name: Urine Culture [facility] 07/07 20:49 Order name: Urine Dipstick-Ancillary; Complete Time: 21:30 [facility] 07/07 21:52 Interpretation: Normal except: UBLD 2+; UPROT 1+; UESTR 1+. cp 07/07 20:49 Order name: Urine --Ancillary; Complete Time: 21:30 [facility] 07/07 20:48 Order name: Urine Dipstick-Ancillary (obtain specimen); Complete Time: 20:48 [facility] 07/07 20:48 Order name: Urine Test (obtain specimen); Complete Time: 20:48 [facility] Administered Medications: 22:22 Drug: Zithromax 1 grams Route: PO; rv 22:23 Follow up: Response: Medication administered at discharge. rv 22:22 Drug: metroNIDAZOLE 1 grams Route: PO; rv 22:23 Follow up: Response: Medication administered at discharge. rv 22:22 Drug: Rocephin (cefTRIAXone) 250 mg Route: IM; Site: left deltoid; rv 22:23 Follow up: Response: Medication administered at discharge. rv Disposition: 07/07/18 22:10 Discharged to Home. Impression: Dysuria, Trichomoniasis, unspecified. - Condition is Stable. - Discharge Instructions: Dysuria, Sexually Transmitted Disease, Trichomoniasis. - Prescriptions for Pyridium 200 mg Oral Tablet - take 1 tablet by ORAL route every 8 hours for 2 days; 6 tablet. Cephalexin 500 mg Oral Capsule - take 1 capsule by ORAL route 3 times per day for 7 days; 21 capsule. - Medication Reconciliation Form, Thank You Letter, Antibiotic Education, Prescription Opioid Use form. - Follow up: Private Physician; When: 2 - 3 days; Reason: Recheck today's complaints. - Problem is new. - Symptoms have improved. Signatures: Dispatcher [employer] Vi Serra, RN RN ak1 Luisito Olmstead PA PA cp Farhan Link, RN RN rv Acob, Cindi RN RN ca1 Corrections: (The following items were deleted from the chart) 22:11 22:10 07/07/2018 22:10 Discharged to Home. Impression: Dysuria. Condition is Stable. cp Forms are Medication Reconciliation Form, Thank You Letter, Antibiotic Education, Prescription Opioid Use. Follow up: Private Physician; When: 2 - 3 days; Reason: Recheck today's complaints. Problem is new. Symptoms have improved. cp 22:29 22:11 07/07/2018 22:10 Discharged to Home. Impression: Dysuria; Trichomoniasis, ca1 unspecified. Condition is Stable. Discharge Instructions: Dysuria, Sexually Transmitted Disease, Trichomoniasis. Prescriptions for Pyridium 200 mg Oral Tablet - take 1 tablet by ORAL route every 8 hours for 2 days; 6 tablet. and Forms are Medication Reconciliation Form, Thank You Letter, Antibiotic Education, Prescription Opioid Use. Follow up: Private Physician; When: 2 - 3 days; Reason: Recheck today's complaints. Problem is new. Symptoms have improved. cp
[2018-07-07] MEDS ORDERED: metroNIDAZOLE 500 MG TABLET ONE (22:25)
[2018-07-07] MEDS ORDERED: AZITHROMYCIN 250 MG TAB ONE (22:25)
[2018-07-07] MEDS ORDERED: CEFTRIAXONE 250 MG/VIAL ONE (22:25)
== END 2018-07-07 22:29 | disposition home or self-care (01) ==
LOC: ER 20:19
DX: A59.9 Trichomoniasis, unspecified (principal)
CPT/HCPCS: 81003; 81015; 81025; 87077; 87086; 87088; 87186; 96372; 99283; J0696